=== PATIENT | female | born 1950 | race Caucasian/White ===

== ENCOUNTER → 2020-11-19 | Outpatient (CLI) | payer MEDICARE ==
[2020-11-19 09:06] VITALS: BP 161/92; PULSE 107; RESP 18; TEMP 98.7
--- NOTE | 2020-11-19 09:37 | P.PAINCN ---
History of Present Illness - Reason for Consult Consult date: 11/19/20 - History of Present Illness This is a 70 years old female with a four-month history of severe neck pain with rotation to the right upper extremity, associated with numbness and tingling sensation started 4 months ago, after she was gardening at home, and she started having her symptoms, she denies any motor or sensory deficit she denies any fever or night sweats she's continued to function, but the pain and numbness in her right arm and hand ,interferes with her quality of life, he was evaluated by orthopedic spine surgeon Dr. 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 History of Any Multi-Drug Resistant Organisms: None Reported Past Surgical History: Hysterectomy, Joint Replacement Additional Past Surgical History / Comment(s): gullbadder removal, total knee replacement right, cervical fusion in the 80s. Past Anesthesia/Blood Transfusion Reactions: No Reported Reaction Smoking Status: Former smoker Medications and Allergies Home Medications Medication Instructions Recorded Confirmed Type ALPRAZolam [Xanax] 0.25 mg PO DAILY 11/19/20 11/19/20 History Loratadine [Claritin] 10 mg PO DAILY 11/19/20 11/19/20 History Meloxicam [Mobic] 7.5 mg PO DAILY 11/19/20 11/19/20 History Physical Exam Vitals: Vital Signs Temp Pulse Resp BP Pulse Ox 11/19/20 08:57 98.7 F 107 H 18 161/92 99 Intake and Output 11/18/20 11/19/20 11/19/20 22:59 06:59 14:59 Other: Weight 68.039 kg Physical Examinations : -Constitutiona : Cooperative , not in acute distress . -HEENT : nech : supple , no Lymphadenopathy , normal thyroid size . : eyes : no ptosis , no icterus, no photophobia . - neurologic : Cranial nerve II to XII intact , no focal neurological deffecit . -psychatric : alert , oriented X 3 , appropriate affect , intact judgment and insight . -Lymphatic : no Lymphadenopathy . - musculoskeltal : Cervical Spine motor stregnth in the deltoid and biceps, normal right side , normal Left side motor stregnth biceps and the wrist extensors normal right side ,normal left side . motor stregnth in the triceps muscle . normal Right side , normal Left side deep tendon reflexes normal at the biceps , normal at Brachioradialis , normal at triceps Decreased sensation in the anterior medial aspect of the right upper extremity. cervical facet loading test: Positive right Spurling test= positive Right . Neck distraction test= positive Right . Ladarius sign= positive right . Lumber spine moter stegnth lower extremities ,thigh and legs 5/5 Right side , 5/5 Left side Results Comments: MRI of the cervical spine C6 7 cervical fusion and C5 6 degeneration and spondylosis at C2 3 uncovertebral joint hypertrophy and facet joint arthropathy C3 4 facet joint hypertrophy, cervical spinal stenosis Assessment and Plan Plan: Assessment and plan=1-cervical radiculopathy. 2-cervical spinal stenosis. 3-cervical degenerative disc disease. 4-cervical spondylosis with facet arthropathy. 5-previous cervical fusion at C6 7 level. Patient could benefit from cervical epidural steroid injection at C7-T1 right paramedian approach Time with Patient: Greater than 30 PQRS Measure Charge Sheet Measure #130: Documentation of Current Meds in Medical Chart: Patient's medications documented in chart Measure #226: Tobacco Use: Screen & Cessation Intervention: Pt not a tobacco user Measure #111: Pneumonia Vaccination: Pneumococcal vaccine administered or previously received Measure #47: Advance Care Plan: Advance care planning discussed & documented, pt chose/unable to give Measure #412: Opioid Treatment Agreement: No documentation of signed opioid treatment agreement Measure #408: Opioid Therapy Follow-up Evaluation: Patient had NO f/u eval minimum every 3 months during opioid therapy Measure #317: Preventitive Care & Scrn High Bld Press & F/U: Pre-hypertensive or hypertensive BP documented, pt will f/u with PCP Measure #128: Body Mass Index (BMI) Screening & Follow-up: BMI documented ABOVE normal parameters - f/u documented Measure #131: Pain Assessment & Follow-up: Pain positive & plan documented, Follow-up scheduled Measure #431: Unhealthy Alcohol Use Preventative Care & Scrn: Patient not identified as an unhealthy alcohol user PQRS Narrative: Blood Pressure 161/92 Pain Intensity [Right Neck] 5 Scale Used Numeric (1 - 10) Hx Alcohol Use (MH) Yes: OCC Home Medications: Ambulatory Orders ALPRAZolam [Xanax] 0.25 mg PO DAILY 11/19/20 Loratadine [Claritin] 10 mg PO DAILY 11/19/20 Meloxicam [Mobic] 7.5 mg PO DAILY 11/19/20
== END | disposition home or self-care (01) ==
LOC: PNWHC3 08:22
PROVIDERS: ATTEND Specialist
DX: M48.02 Spinal stenosis, cervical region (principal); M50.10 Cervical disc disorder with radiculopathy, unspecified cervical region; M47.22 Other spondylosis with radiculopathy, cervical region; Z98.1 Arthrodesis status; Z79.1 Long term (current) use of non-steroidal anti-inflammatories (NSAID); Z79.899 Other long term (current) drug therapy; Z87.891 Personal history of nicotine dependence
CPT/HCPCS: 99201

== ENCOUNTER 2020-12-12 12:34 | Day surgery (SDC) | payer MEDICARE ==
[2020-12-11 09:13] VITALS: BMI 25.7
[~2020-12-12 12:34] MED LIST: LACTATED RINGERS 1,000 ML IV SCH
[2020-12-12 13:24] VITALS: TEMP 99.2
[2020-12-12] MEDS ORDERED: LIDOCAINE 1% (10MG/ML) FOR IV START INTRADERMA ONE (13:42)
[2020-12-12] MEDS ORDERED: IOPAMIDOL M200 10 ML VIAL ONE (13:49)
[2020-12-12] MEDS ORDERED: DEXAMETHASONE SOD PHOSPHATE 10 MG/ML 1 ML VIAL ONE (13:49)
[2020-12-12] MEDS ORDERED: fentaNYL (PF) 50 MCG/ML 2 ML AMP ONE (13:51)
[2020-12-12] MEDS ORDERED: MIDAZOLAM 2 MG/2 ML VIAL ONE (13:51)
--- NOTE | 2020-12-12 14:02 | P.PCN ---
Date of Procedure: 12/12/20 Procedure(s) Performed: . PROCEDURE 1. Cervical epidural steroid injection under fluoroscopic guidance, C7-T1 (fluoroscopy images available in the radiology department ) 2. Cervical epidurogram. PREOPERATIVE DIAGNOSIS: 1- Cervical Degenerative Disc Diseases 2- Cervical radiculopathy., 3-cervical spondylosis with cervical Facet arthropathy without myelopathy POSTOPERATIVE DIAGNOSIS: : 1- Cervical Degenerative Disc Diseases , 2- Cervical radiculopathy. 3-,cervical spondylosis with cervical Facet arthropathy without myelopathy ANESTHESIA: Monitored anesthesia care as per anesthesia department. EBL 0 PROCEDURE INDICATION: The patient with neck pain and radiculitis unresponsive to conservative treatment consents for procedure. PROCEDURE DESCRIPTION / TECHNIQUE: The patient was seen and identified in the preoperative area. Risks, benefits, complications, including but not limited to infections ,bleeding , allergic reactions to the medications ,and not complete pain releife, and alternatives were discussed with the patient, the patient agreed to proceed with the procedure and signed the consent. Patient was taken to the OR and time out was completed. The patient was placed in the prone position on the procedure table. A pillow was placed under the patients chest to increase the cervical interlaminar space. The cervical area was prepped and draped in the usual sterile fashion. Vital signs were closely monitored during the procedure. Conscious sedation was used during the procedure to decrease patients anxiety. Using anterior-posterior fluoroscopy, the C7-T1 interlaminar space was identified and the skin over this site was marked and then infiltrated with 1% lidocaine subcutaneously. Subsequently, a 20-gauge 3-1/2-inch Tuohy epidural needle was inserted and advanced toward the epidural space by means of the ``hanging-drop technique and guided by AP and lateral fluoroscopy. The correct needle position in the epidural space was verified with the injection of 2 mL of the water soluble contrast dye Isovue-200 and observing an excellent epidurogram with the epidural spread of the dye, after negative aspiration for blood and CSF and in the absence of paresthesias. Again after negative aspiration, mixture containing 20 mg Dexamethasone and 2 ml of preservative- free normal saline injected and a washout of epidurogram was seen. Needle was withdrawn intact, skin was cleansed, and bandages were applied. Complications= none. Disposition= patient was placed in supine position and transferred to the recovery room area in stable condition and there was no evidence of upper or lower extremity motor or sensory deficit after the procedure patient was d ischarged from recovery room after discharge criteria met and home discharge instructions was given by the staff and patient will follow with the pain clinic in 2-4 weeks
[2020-12-12] MEDS ORDERED: IV FLUID CONTINUATION 800 ML IV ONE (14:08)
--- NOTE | 2020-12-12 14:12 | FL ---
EXAMINATION TYPE: FL guided pain mgmt statistic DATE OF EXAM: 12/12/2020 HISTORY: Fluoroscopy time Less than 60 seconds of fluoroscopy provided. IMPRESSION: 1. Fluoroscopy time.
[2020-12-12 14:15] VITALS: PULSE 84; RESP 20
[2020-12-12 14:37] VITALS: BP 126/81
== END 2020-12-12 14:39 | disposition home or self-care (01) ==
LOC: ORPAIN 12:34
PROVIDERS: ATTEND Specialist
DX: M50.10 Cervical disc disorder with radiculopathy, unspecified cervical region (principal); M47.22 Other spondylosis with radiculopathy, cervical region; I49.9 Cardiac arrhythmia, unspecified; I10 Essential (primary) hypertension; Z88.5 Allergy status to narcotic agent; Z79.1 Long term (current) use of non-steroidal anti-inflammatories (NSAID); Z79.899 Other long term (current) drug therapy
CPT/HCPCS: 62321; J2250; J1100; J3010; Q9966

== ENCOUNTER 2021-01-01 08:01 | Day surgery (SDC) | payer MEDICARE ==
[2020-12-31 12:08] VITALS: BMI 25.4
[2021-01-01 08:28] VITALS: TEMP 98
[2021-01-01] MEDS ORDERED: LIDOCAINE 1% (10MG/ML) FOR IV START INTRADERMA ONE (08:28)
[2021-01-01] MEDS ORDERED: IOPAMIDOL M200 10 ML VIAL ONE (08:45)
[2021-01-01] MEDS ORDERED: MIDAZOLAM 2 MG/2 ML VIAL ONE (08:45)
[2021-01-01] MEDS ORDERED: fentaNYL (PF) 50 MCG/ML 2 ML AMP ONE (08:45)
[2021-01-01] MEDS ORDERED: SODIUM CHLORIDE 0.9% (PF) 10 ML VIAL ONE (08:45)
[2021-01-01] MEDS ORDERED: DEXAMETHASONE SOD PHOSPHATE 10 MG/ML 1 ML VIAL ONE (08:45)
--- NOTE | 2021-01-01 09:04 | P.PCN ---
Date of Procedure: 01/01/21 Procedure(s) Performed: PROCEDURE 1. Cervical epidural steroid injection under fluoroscopic guidance, C7-T1 (R paramedian approach ) (fluoroscopy images available in the radiology department ) 2. Cervical epidurogram. PREOPERATIVE DIAGNOSIS: 1- Cervical Degenerative Disc Diseases 2- Cervical radiculopathy., 3-cervical spondylosis with cervical Facet arthropathy without myelopathy POSTOPERATIVE DIAGNOSIS: : 1- Cervical Degenerative Disc Diseases , 2- Cervical radiculopathy. 3-,cervical spondylosis with cervical Facet arthropathy without myelopathy ANESTHESIA: Moderate sedation with Versed 2 mg and fentanyl 50 g. EBL 0 PROCEDURE INDICATION: The patient with neck pain and radiculitis unresponsive to conservative treatment consents for procedure. PROCEDURE DESCRIPTION / TECHNIQUE: The patient was seen and identified in the preoperative area. Risks, benefits, complications, including but not limited to infections ,bleeding , allergic reactions to the medications ,and not complete pain releife, and alternatives were discussed with the patient, the patient agreed to proceed with the procedure and signed the consent. Patient was taken to the OR and time out was completed. The patient was placed in the prone position on the procedure table. A pillow was placed under the patients chest to increase the cervical interlaminar space. The cervical area was prepped and draped in the usual sterile fashion. Vital signs were closely monitored during the procedure. Conscious sedation was used during the procedure to decrease patients anxiety. Using anterior-posterior fluoroscopy, the C7-T1 ( right paramedian approach ) interlaminar space was identified and the skin over this site was marked and then infiltrated with 1% lidocaine subcutaneously. Subsequently, a 20-gauge 3-1/2-inch Tuohy epidural needle was inserted and advanced toward the epidural space by means of the ``hanging-drop technique and guided by AP and lateral fluoroscopy. The correct needle position in the epidural space was verified with the injection of 2 mL of the water soluble contrast dye [id number]-200 and observing an excellent epidurogram with the epidural spread of the dye, after negative aspiration for blood and CSF and in the absence of paresthesias. Again after negative aspiration, mixture containing 20 mg Dexamethasone and 2 ml of preservative-free normal saline injected and a washout of epidurogram was seen. Needle was withdrawn intact, skin was cleansed, and bandages were applied. Complications= none. Disposition= patient was placed in supine position and transferred to the recovery room area in stable condition and there was no evidence of upper or lower extremity motor or sensory deficit after the procedure patient was discharged from recovery room after discharge criteria met and home discharge instructions was given by the staff and patient will follow with the pain clinic in 2-4 weeks
[2021-01-01] MEDS ORDERED: IV FLUID CONTINUATION 1,000 ML IV ONE (09:09)
[2021-01-01 09:24] VITALS: BP 135/80; PULSE 64; RESP 16
--- NOTE | 2021-01-01 11:12 | FL ---
Fluoroscopy INDICATION: Pain FINDINGS: Fluoroscopy time: 14 seconds. Images obtained: 1. IMPRESSIONS: 1. Documentation of fluoroscopy.
== END 2021-01-01 09:50 | disposition home or self-care (01) ==
LOC: ORPAIN 08:01
PROVIDERS: ATTEND Specialist
DX: M50.10 Cervical disc disorder with radiculopathy, unspecified cervical region (principal); M47.22 Other spondylosis with radiculopathy, cervical region; Z88.5 Allergy status to narcotic agent
CPT/HCPCS: 62321; J2250; J1100; J3010; Q9966; 99152

== ENCOUNTER → 2021-01-20 | Outpatient (CLI) | payer MEDICARE ==
[2021-01-20 15:56] LABS: Basophils # (A) 0.1 k/uL (0-0.2); Basophils % (A) 1 %; Eosinophils # (A) 0.2 k/uL (0-0.7); Eosinophils % (A) 4 %; HCT 40.1 % (34.0-46.0); HGB 13.2 gm/dL (11.4-16.0); Lymphocytes # (A) 1.8 k/uL (1.0-4.8); Lymphocytes % (A) 35 %; MCH 32.6 pg (25.0-35.0); MCV 98.7 fL (80.0-100.0); Mean Platelet Volume 7.3; Monocytes # (A) 0.5 k/uL (0-1.0); Monocytes % (A) 10 %; Neutrophils # (A) 2.3 k/uL (1.3-7.7); Neutrophils % (A) 46 %; Platelet Count 180 k/uL (150-450); RBC 4.06 m/uL (3.80-5.40); RDW 13.3 % (11.5-15.5); WBC 5.1 k/uL (3.8-10.6)
[2021-01-20 16:05] LABS: Appearance,Urine Clear (Clear); Bilirubin,Urine Negative (Negative); Blood,Urine Negative (Negative); Calcium 9.5 mg/dL (8.4-10.2); Color,Urine Yellow; Glucose,Urine (UA) Negative (Negative); Ketones,Urine Negative (Negative); Leukocyte Esterase,Urine Moderate (Negative); Mucus,Urine Rare /hpf; Nitrite,Urine Negative (Negative); PH, Urine 5.5 (5.0-8.0); Potassium 4.1 mmol/L (3.5-5.1); Protein,Urine Negative (Negative); Specific Gravity,Urine 1.021 (1.001-1.035); Squamous Epithelial Cell,Urine 1 /hpf (0-4); Urobilinogen,Urine <2.0 mg/dL (<2.0); WBC,Urine 5 /hpf (0-5)
[2021-01-20 16:11] LABS: Partial Thromboplastin Time 23.1 sec (22.0-30.0); Prothrombin Time 10.7 sec (9.0-12.0)
--- NOTE | 2021-01-20 16:25 | XR ---
EXAMINATION TYPE: XR chest 2V DATE OF EXAM: 01/20/2021 COMPARISON: 01/17/2013 HISTORY: 70-year-old female presurgical testing TECHNIQUE: Frontal and lateral views FINDINGS: Heart normal size. Mild atherosclerotic calcifications. Some strandy atelectasis in the lower lungs. No layne consolidation or pleural effusion. IMPRESSION: No acute process seen.
== END | disposition home or self-care (01) ==
LOC: LABPAT 15:01
PROVIDERS: ATTEND Orthopaedic Surgery Orthopaedic Surgery of the Spine
DX: Z01.818 Encounter for other preprocedural examination (principal)
CPT/HCPCS: 71046; 80048; 81001; 85025; 85610; 85730; 86850; 86900; 86901; 93005

== ENCOUNTER 2021-01-28 06:22 | Day surgery (SDC) | payer MEDICARE ==
[2021-01-22 09:56] VITALS: BMI 25.7
[~2021-01-28 06:22] MED LIST changes: +DEXAMETHASONE SOD PHOSPHATE 4 MG/ML 1 ML VIAL IV PRN; -LACTATED RINGERS 1,000 ML IV SCH; +LIDOCAINE 1% (10MG/ML) FOR IV START INTRADERMA PRN; +ONDANSETRON 4 MG/2 ML VIAL IVP PRN; +ceFAZolin 1,000 MG in SODIUM CHLORIDE 0.9% IRRIGATIO 1,000 ML IRRIGATION PRN
[2021-01-28] MEDS: LACTATED RINGERS 1,000 ML IV SCH (06:57)
[2021-01-28] MEDS ORDERED: SUCCINYLCHOLINE CHLORIDE 100 MG/5 ML SYR IV ONE (07:27)
[2021-01-28] MEDS ORDERED: PROPOFOL 10 MG/ML 20 ML VIAL IV ONE (07:27)
[2021-01-28] MEDS ORDERED: fentaNYL (PF) 50 MCG/ML 2 ML AMP ONE (07:27)
[2021-01-28] MEDS ORDERED: DEXAMETHASONE SOD PHOSPHATE 10 MG/ML 1 ML VIAL ONE (07:27)
[2021-01-28] MEDS ORDERED: MIDAZOLAM 2 MG/2 ML VIAL ONE (07:27)
[2021-01-28] MEDS ORDERED: BUPIVACAINE (PF) 0.5% 30 ML VIAL SQ ONE ×2 (07:55→08:01)
[2021-01-28] MEDS ORDERED: LIDOCAINE 2%-EPI 1:100,000 20 ML VIAL SQ ONE ×2 (07:56→08:01)
[2021-01-28] MEDS ORDERED: THROMBIN (BOVINE) 5,000 UNIT VIAL TOPICAL ONE (07:56)
[2021-01-28] MEDS ORDERED: GELATIN SPONGE,ABSORB (SMALL) 1 EACH SPONGE TOPICAL ONE (07:57)
[2021-01-28] MEDS ORDERED: ACETAMINOPHEN TAB 325 MG TAB PO PRN (09:28)
[2021-01-28] MEDS ORDERED: ONDANSETRON 4 MG/2 ML VIAL IVP PRN (09:28)
[2021-01-28] MEDS ORDERED: traMADol 50 MG TAB PO PRN (09:30)
--- NOTE | 2021-01-28 09:42 | P.OP ---
Date of Procedure: 01/28/21 Preoperative Diagnosis: Severe cervical stenosis C5 6, cervical myelopathy, degenerative disc disease, upper extremity radiculopathy, upper extremity weakness, history of prior fusion C6 7 Postoperative Diagnosis: Same Anesthesia: GETA Pathology: none sent Condition: stable Disposition: PACU Description of Procedure: BRIEF OPERATIVE NOTE Preoperative Diagnosis:Severe cervical stenosis C5 6, cervical myelopathy, degenerative disc disease, upper extremity radiculopathy, upper extremity weakness, history of prior fusion C6 7 Postoperative Diagnosis:Severe cervical stenosis C5 6, cervical myelopathy, degenerative disc disease, upper extremity radiculopathy, upper extremity weakness, history of prior fusion C6 7 Procedure: Anterior cervical decompression with discectomy and fusion C5 6 Placement of interbody graft C5 6 Application of anterior cervical plate C5 6 Surgeon: Dr. Jonas Saddle Stitching Machine Operator: Jairo Herbert is present throughout the entire the case persistence during positioning, dissection, exposure, visualization, and all crucial elements of the case as well as closure. Anesthesia: General anesthesia Estimated blood loss: Approximately 75 mL Complications: None apparent Components implanted: K2M [place] anterior cervical plate system with 4 screws and Vikos interbody allograft bone graft Disposition: To recovery room in good stable condition. OPERATIVE INDICATIONS The patient has had long-standing issues in their neck and upper extremities. More than 20 years ago patient had undergone anterior cervical discectomy and fusion at C6 7 for stenosis. She had actually done well with that however has couple years is been developing worsening pain at her neck and upper extremities. His been worsening over the past few months and she had workup and evaluation found to have severe cervical stenosis and adjacent level at C5 6 with cord distortion and evidence of early myelopathy. Patient was having troubles in her upper extremities with some weakness and radiculopathy. The patient has been through conservative treatment. We discussed various treatment options including surgery, and the patient wishes to proceed with surgery We discussed the risk, patient's alternatives and benefits of surgery including but not limited to, risk of bleeding risk of infection, risk of need for further zepeda rgery, risk of decreased, loss of motion, muscle function, malunion nonunion, hardware failure, nerve damage, paralysis, heart attack, and . OPERATIVE SUMMARY After discussing all the risks, patient alternatives and benefits at length, the patient elected to proceed with surgical intervention, signed informed consent, and presented for their procedure. The patient was seen and examined in the preoperative holding area and the surgical site was marked. The patient was given antibiotics and brought to the operating room. The patient was positioned on the operating room table in a supine position being careful to pad any bony prominences and pressure points. The patient was sedated and intubated by anesthesia in standard fashion. Once the airway and C- spine were stabilized the patient's arms were padded and tucked at her side, with her shoulders gently taped. The head was placed in a donut pad with the neck in good neutral alignment and position. We were careful to maintain the patient's cervical spine and good neutral alignment and position throughout. The patient was prepped and draped in a normal standard fashion. An appropriate timeout and keystone protocol performed. We were able to proceed with the surgery. The local wound area was infiltrated with local anesthetic. An incision was made transversely approximately 2-1/2 cm over the appropriate levels on the left side at C5 6. Dissection was taken down subcutaneously to the level of the platysma which was split in line with its fibers. Dissection was taken with a carotid approach, with the trachea and esophagus medial and the carotid sheath laterally. We dissected down to the anterior surface of the vertebral bodies. Intraoperative x-ray was taken which showed a marker at the appropriate level at C5 6. With the appropriate level positively confirmed, we were able to proceed with discectomy at the appropriate levels. All of the operative levels were exposed appropriately. The patient had all their twitches back, and there was no evidence of recurrent laryngeal issue. The wound was copiously irrigated and suctioned dry as had been done periodically throughout the case. At the appropriate level/levels of C5 6, I had removed large anterior cervical osteophytes and then I established an annulotomy with an 11 blade scalpel. A discectomy was performed with a combination of pituitary rongeurs, curettes, a high-speed bur, and Kerrison rongeurs. The posterior longitudinal ligament was taken down as were any posterior osteophytes. Large posterior osteophytes were taken down as well as the thickened posterior longitudinal ligament. This gave good central and bilateral foraminal decompression. There is no evidence of any dural tear or leak. The endplates were prepared with a high-speed bur. With the endplates in good parallel position, I was able to size for the appropriate size interbody graft. The wound was irrigated and suctioned dry the graft was prepared and malleted into position. It had good alignment and position with the anterior surface flush with the anterior surface of the vertebral bodies. With the grafts intact, I was able to measure and contour and appropriate sized plate. The plate was positioned at the midline over the appropriate levels of C5 6. Screw holes were established with a hand drill and drill guide. Screws were placed in good alignment and position with excellent bony purchase. They were seated under the locking device. The construct was checked and found to be stable. Intraoperative x-ray was taken which showed good alignment and position of the implants at the appropriate levels. There was no evidence of any dural tear or leak. Good hemostasis was maintained. The wound was copiously irrigated and suctioned dry as had been done periodically throughout the case. The platysma was closed with absorbable suture. The subcutaneous tissue was closed. The subcuticular tissue was closed with absorbable suture. The wound was cleaned and dried and dressed appropriately. A soft cervical collar was placed appropriately. The patient was woken up by anesthesia, extubated, transferred back gently to their hospital bed and brought to the recovery room in good stable condition. The patient will be admitted to the hospital for appropriate postoperative care, medical management and monitoring. We will continue to follow them closely about the postoperative course.
[2021-01-28] MEDS ORDERED: fentaNYL (PF) 50 MCG/ML 2 ML AMP IVP ONE ×2 (09:50→10:00)
--- NOTE | 2021-01-28 10:32 | XR ---
Cervical spine HISTORY: Needle placement Single lateral view of the cervical spine submitted Marked degenerative disc change, postop changes noted. There is a needle present at the C3-4 disc spa ce. Endotracheal tube noted incidentally, there are overlying artifacts, leads. impression: Orthopedic localization
--- NOTE | 2021-01-28 10:36 | XR ---
Cervical spine HISTORY: Needle placement Single lateral view of the cervical spine correlated to previous exam on same dated earlier time Needle has been replaced at the C5-6 disc space. No other significant interval change. IMPRESSION: Orthopedic localization.
[2021-01-28] MEDS ORDERED: ONDANSETRON 4 MG/2 ML VIAL IVP ONE (10:42)
[2021-01-28] MEDS: HYDROmorphone 0.5 MG/0.5 ML SYRINGE IVP PRN ×4 (10:47→21:21)
[2021-01-28] MEDS ORDERED: ALPRAZolam 0.5 MG TAB ONE (10:58)
--- NOTE | 2021-01-28 11:03 | XR ---
EXAMINATION TYPE: XR cervical spine 1V DATE OF EXAM: 01/28/2021 COMPARISON: 01/28/2021 HISTORY: 70-year-old female heart replacement TECHNIQUE: Single intraoperative crosstable lateral view FINDINGS: The patient is intubated. Interval placement of C5-C6 ACDF. Stable degenerative grade 1 anterolisthes is C3-C4. IMPRESSION: Intraoperative view with placement of C5-C6 ACDF.
[2021-01-28] MEDS ORDERED: ALPRAZolam 0.5 MG TAB PO ONE (11:05)
[2021-01-28] MEDS: HYDROcodone/APAP 5-325MG 1 EACH TAB PO PRN ×2 (15:36→19:25)
[2021-01-28] MEDS: SODIUM CHLORIDE 0.9% 1,000 ML IV SCH (16:11)
[2021-01-28] MEDS: ALPRAZolam 0.5 MG TAB PO SCH (20:16)
[2021-01-28] MEDS: atenoloL 25 MG TAB PO SCH (20:16)
[2021-01-29] MEDS: SODIUM CHLORIDE 0.9% 1,000 ML IV SCH
[2021-01-29] MEDS: BENZOCAINE/MENTHOL LOZENG 1 EACH LOZENGE MUCOUS MEM PRN ×2 (00:18→09:11)
[2021-01-29] MEDS: LACTATED RINGERS 1,000 ML IV SCH (02:49)
[2021-01-29 05:22] VITALS: BP 122/77; PULSE 70; RESP 16; TEMP 98
[2021-01-29] MEDS: HYDROmorphone 0.5 MG/0.5 ML SYRINGE IVP PRN (07:23)
--- NOTE | 2021-01-29 08:33 | P.DS ---
Providers Date of admission: 01/28/21 Attending physician: Gracie Jonas Primary care physician: Johnny Castro Berger Hospital Course: The patient presented on the day of admission as per their operative note. She is postoperative day #1 from her anterior cervical decompression with discectomy and fusion at C5 6 for her adjacent level severe stenosis with upper extremity radiculopathy. She feels that her arms are doing well. She is some soreness around the base of her neck as expected. She is tolerating her diet and has been mobile and ambulatory. Physical Exam The incision site is clean dry and intact. There is no erythema no drainage. There is no purulence no evidence of infection. Her neck is soft and supple. There is some mild swelling around the area but no firmness. Abdomen soft and nontender. Chest has good excursion with deep inspiration and expiration. The patient has active and passive range of motion intact at the upper and lower extremities. There is no acute change in neurologic status. She has sustained terminal makeup operator biceps and triceps intact. Hospital Course Postoperative day #1 status post anterior cervical decompression with discectomy and fusion C5 6 for her severe spinal stenosis with upper extremity radiculopathy and weakness. She had a prior cervical fusion at C6 7 20 years ago. The patient has been making good progress postoperatively. She feels her arms are doing well. Her neck and shoulders have some sort stiffness from her surgery as expected. She is tolerating his appropriately. They have completed the prophylactic antibiotics without any signs or symptoms of infection. The patient has been able to advance their diet, and is tolerating diet adequately. The pain was initially controlled with IV medications and is now controlled appropriately with oral medications. The patient has been able to increase their mobilization. The patient has progressed appropriately. I think they are in good stable condition for discharge today. They will be sent home with appropriate prescriptions. I answered their questions to the best of my ability in a language that they can understand and they are agreeable with the plan. They will follow up as directed in approximately 2 weeks or sooner if she is having problems. Patient Condition at Discharge: Good Plan - Discharge Summary Discharge Rx Participant: Yes New Discharge Prescriptions: New HYDROcodone/APAP 5-325MG [Berkey 5] 1 each PO Q6HR PRN #12 tab PRN Reason: Pain traMADol HCL [Ultram] 50 mg PO Q6HR PRN 3 Days #28 tab PRN Reason: Pain No Action Meloxicam [Mobic] 7.5 mg PO BID Loratadine [Claritin] 10 mg PO DAILY ALPRAZolam [Xanax] 0.5 mg PO BID atenoloL [Atenolol] 25 mg PO BID Aspirin [Adult Low Dose Aspirin EC] 81 mg PO DAILY Multivitamin [Multivitamins Adult Gummies] 1 each PO DAILY Cholecalciferol [Vitamin D3 (25 Mcg = 1000 Iu)] 50 mcg PO DAILY Discharge Medication List ALPRAZolam [Xanax] 0.5 mg PO BID 11/19/20 [History] Loratadine [Claritin] 10 mg PO DAILY 11/19/20 [History] Meloxicam [Mobic] 7.5 mg PO BID 11/19/20 [History] Aspirin [Adult Low Dose Aspirin EC] 81 mg PO DAILY 11/24/20 [History] atenoloL [Atenolol] 25 mg PO BID 11/24/20 [History] Multivitamin [Multivitamins Adult Gummies] 1 each PO DAILY 12/11/20 [History] Cholecalciferol [Vitamin D3 (25 Mcg = 1000 Iu)] 50 mcg PO DAILY 12/31/20 [History] HYDROcodone/APAP 5-325MG [Berkey 5] 1 each PO Q6HR PRN #12 tab 01/29/21 [Rx] traMADol HCL [Ultram] 50 mg PO Q6HR PRN 3 Days #28 tab 01/29/21 [Rx] Follow up Appointment(s)/Referral(s): Gracie Jonas DO [Doctor of Osteopathic Medicine] - 2 Weeks Activity/Diet/Wound Care/Special Instructions: Do not take Ultram (Tramadol) and Berkey (hydrcodone) together. may alternate every 6-8 hours, or take one or the other. keep site clean, dry and intact. keep dressing intact. may shower with waterproof dressing intact. do not soak in a tub may remove dressing on Post op day 4, and then may shower with area uncovered avoid heavy or rigorous activity no overhead work may ambulate as tolerated Discharge Disposition: HOME SELF-CARE
[2021-01-29] MEDS ORDERED: MULTIVITAMINS, THERA 1 EACH TAB PO SCH (09:00)
[2021-01-29] MEDS ORDERED: CHOLECALCIFEROL 25 MCG (1000 IU) TABLET PO SCH (09:00)
[2021-01-29] MEDS ORDERED: LORATADINE 10 MG TAB PO SCH (09:00)
[2021-01-29] MEDS ORDERED: ASPIRIN 81 MG PO SCH (09:00)
[2021-01-29] MEDS ORDERED: SENNOSIDES-DOCUSATE SODIUM 1 EACH TAB PO SCH (09:00)
[2021-01-29] MEDS: ALPRAZolam 0.5 MG TAB PO SCH (09:04)
[2021-01-29] MEDS: atenoloL 25 MG TAB PO SCH (09:04)
[2021-01-29] MEDS: HYDROcodone/APAP 5-325MG 1 EACH TAB PO PRN (10:50)
== END 2021-01-29 11:18 | disposition home or self-care (01) ==
LOC: OR 06:22 → 5NMEDONC 09:33 → OR 01-29 11:18
PROVIDERS: ATTEND Orthopaedic Surgery Orthopaedic Surgery of the Spine
DX: M48.02 Spinal stenosis, cervical region (principal); M50.022 Cervical disc disorder at C5-C6 level with myelopathy; M50.122 Cervical disc disorder at C5-C6 level with radiculopathy; M43.12 Spondylolisthesis, cervical region; Z98.1 Arthrodesis status; M19.90 Unspecified osteoarthritis, unspecified site; I11.9 Hypertensive heart disease without heart failure; N28.9 Disorder of kidney and ureter, unspecified; Z85.828 Personal history of other malignant neoplasm of skin; Z86.73 Personal history of transient ischemic attack (TIA), and cerebral infarction without residual deficits; Z97.3 Presence of spectacles and contact lenses; H91.90 Unspecified hearing loss, unspecified ear; F41.9 Anxiety disorder, unspecified; Z90.710 Acquired absence of both cervix and uterus; Z98.890 Other specified postprocedural states; Z96.651 Presence of right artificial knee joint; Z87.891 Personal history of nicotine dependence; Z79.1 Long term (current) use of non-steroidal anti-inflammatories (NSAID); Z79.82 Long term (current) use of aspirin; Z79.899 Other long term (current) drug therapy; Z88.5 Allergy status to narcotic agent
CPT/HCPCS: 22551; 20931; 72020; C1713; C1762; J2250; J1100; J0690 ×3; J2405; J3010; J0330; J2704; J1170 ×2; 86850; 86900; 86901

== ENCOUNTER 2024-09-27 00:35 | Emergency (ER) | payer MEDICARE ==
[2024-09-27 00:45] VITALS: TEMP 98.4
[2024-09-27 00:51] LABS: Glucose,Whole Blood 151 mg/dL (70-110)
--- NOTE | 2024-09-27 00:53 | ED ---
Altered Mental Status HPI - General Chief Complaint: Altered Mental Status Stated Complaint: syncope Time Seen by Provider: 09/27/24 00:38 Source: patient, EMS Mode of arrival: EMS - History of Present Illness Initial Comments: Patient is a 74-year-old female with a history of prior CVA/TIA presenting today for seizure. Per EMS report patient has no history of seizures. Just prior travel patient had 12-minute tonic-clonic activity witnessed by family just prior to arrival. Did fall and hit her head. En route to the hospital she had increasing level of consciousness but appeared post ictal. Blood sugar 109 prior to arrival. The patient herself denies any pain currently. Denies any changes in vision. Denies headache or neck pain. History is limited due to patient's altered mental status, currently oriented to self and place but not time - Related Data Home Medications Medication Instructions Recorded Confirmed ALPRAZolam [Xanax] 0.5 mg PO BID 11/19/20 01/28/21 Loratadine [Claritin] 10 mg PO DAILY 11/19/20 01/28/21 Meloxicam [Mobic] 7.5 mg PO BID 11/19/20 01/28/21 Aspirin [Adult Low Dose Aspirin EC] 81 mg PO DAILY 11/24/20 01/28/21 atenoloL [Atenolol] 25 mg PO BID 11/24/20 01/28/21 Multivitamin [Multivitamins Adult 1 each PO DAILY 12/11/20 01/28/21 Gummies] Cholecalciferol [Vitamin D3 (25 50 mcg PO DAILY 12/31/20 01/28/21 Mcg = 1000 Iu)] Previous Rx's Medication Instructions Recorded HYDROcodone/APAP 5-325MG [[place] 5] 1 each PO Q6HR PRN #12 tab 01/29/21 traMADol HCL [Ultram] 50 mg PO Q6HR PRN 3 Days #28 tab 01/29/21 Allergies Allergy/AdvReac Type Severity Reaction Status Date / Time pentazocine [From [place]] AdvReac Hallucinati Verified 01/28/21 06:55 ons Review of Systems ROS Statement: Those systems with pertinent positive or pertinent negative responses have been documented in the HPI. ROS Other: All systems not noted in ROS Statement are negative. Limitations: ROS unobtainable due to patients medical condition Past Medical History Past Medical History: Cancer, CVA/TIA, Hearing Disorder / Deafness, Hypertension, Osteoarthritis (OA) Additional Past Medical History / Comment(s): basal cell carcinoma, generalized arthritis, deafness. History of Any Multi-Drug Resistant Organisms: None Reported Past Surgical History: Cholecystectomy, Hysterectomy, Joint Replacement, Orthopedic Surgery Additional Past Surgical History / Comment(s): total knee replacement right, ce rvical fusion in the 80s. pain injections Past Anesthesia/Blood Transfusion Reactions: No Reported Reaction Past Psychological History: No Psychological Hx Reported Smoking Status: Former smoker - Past Family History Mother Family Medical History: No Reported History General Exam - General Exam Comments Initial Comments: PE: CONSTITUTIONAL: [no apparent distress, ill-appearing, nontoxic] SKIN: [warm, dry, no jaundice, hives or petechiae] EYES:[ pupils are equally round, extraocular movements intact without nystagmus, clear conjunctiva, non-icteric sclera] HENT: [normocephalic, atraumatic, moist mucus membranes, small bite nellie to the lower lip, dried blood around mouth otherwise note oropharynx is clear oropharynx clear without exudates] NECK: , [C-collar in place, no midline spinal tenderness to palpation] PULMONARY: [clear to auscultation without wheezes, rhonchi, or rales, normal excursion, no accessory muscle use and no stridor] CARDIOVASCULAR:[ regular rate, rhythm, normal S1 and S2. No appreciated murmurs, rubs or gallops. Strong radial pulses with intact distal perfusion. No lower extremity edema] GASTROINTESTINAL: [soft, active bowel sounds throughout, non-tender, non-disten ded, no palpable masses, no rebound or guarding. No hepatosplenomegaly] GENITOURINARY: MUSCULOSKELETAL: [Extremities have no gross deformity, no edema, redness, or swelling. No calf swelling ] NEUROLOGIC: [_a/o x 2-3 , GCS 14, mild aphasia and mild dysarthria Moves all extremities x 4 without motor or sensory deficit, clonus in LE bilaterally, infrequent intermittent twitchng movements of extremities, otherwise no seizure activity, no nystagmus] PSYCHIATRIC:[ _normal mood and affect, thought process is somewhat confused. Calm and cooperatvie] Course Vital Signs 09/27/24 09/27/24 09/27/24 00:36 00:49 01:19 Temperature 98.4 F Pulse Rate 78 74 76 Respiratory 16 18 18 Rate Blood Pressure 165/96 165/96 152/91 O2 Sat by Pulse 98 99 99 Oximetry Fraction of Inspired Oxygen (FIO2) 09/27/24 09/27/24 09/27/24 01:48 01:54 02:19 Temperature Pulse Rate 88 90 Respiratory 8 L 14 Rate Blood Pressure 188/102 132/76 O2 Sat by Pulse 100 97 Oximetry Fraction of 100 Inspired Oxygen (FIO2) 09/27/24 09/27/24 03:03 03:21 Temperature Pulse Rate 80 82 Respiratory 16 16 Rate Blood Pressure 137/85 137/85 O2 Sat by Pulse 96 96 Oximetry Fraction of Inspired Oxygen (FIO2) Medical Decision Making - Medical Decision Making Was pt. sent in by a medical professional or institution (, PA, FITNESS PLAN COORDINATOR, urgent care, hospital, or skilled nursing...) When possible be specific @ -No Did you speak to anyone other than the patient for history (EMS, parent, family, police, friend...)? What history was obtained from this source @ -I did speak with EMS personnel and patient's family who later arrived at bedside Did you review nursing and triage notes (agree or disagree)? Why? @ -I reviewed and agree with nursing and triage notes Were old charts reviewed (outside hosp., previous admission, EMS record, old EKG, old radiological studies, urgent care reports/EKG's, skilled nursing records)? Report findings @Medical records reviewed- Most recent record available for review is from 01/28/2021 when patient had anterior cervical decompression and discectomy. Differential Diagnosis (chest pain, altered mental status, abdominal pain women, abdominal pain men, vaginal bleeding, weakness, fever, dyspnea, syncope, headache, dizziness, GI bleed, back pain, seizure, CVA, palpatations, mental health, musculoskeletal)? @ -Differential Seizure: Recurrent seizure disorder, febrile seizure, alcohol withdrawal, stimulants, infection, intercranial hemorrhage, intracranial tumor, stroke, thyrotoxicosis, hypocalcemia, hyponatremia, hypernatremia, hypomagnesemia, psychogenic, this is not meant to be an all-inclusive list. EKG interpreted by me (3pts min.). @Sinus rhythm, rate 79 bpm, MO interval 200 ms, QRS duration 90 ms, QT/QTc 382/416 ms, normal axis, no ST elevations or depressions X-rays interpreted by me (1pt min.). @No cardiomegaly or consolidations CT interpreted by me (1pt min.). @No evidence of hemorrhage, dissection or large vessel occlusion U/S interpreted by me (1pt. min.). @ -None done What testing was considered but not performed or refused? (CT, X-rays, U/S, labs)? Why? @ -None What meds were considered but not given or refused? Why? @Considered Ativan however patient seizure aborted spontaneously Did you discuss the management of the patient with other professionals (ratna thornton i.e. , PA, FITNESS PLAN COORDINATOR, lab, RT, psych nurse, drug abuse social worker, piggyback clerk, teacher, foreign service officer, caser up)? Give summary @ -Case discussed with accepting physician at [facility] as well as Dr. Michael khan, neurology, see details on conversation below Was smoking cessation discussed for >3mins.? @ -No Was critical care preformed (if so, how long)? @Yes, 45 minutes Were there social determinants of health that impacted care today? How? (Homelessness, low income, unemployed, alcoholism, drug addiction, transportation, low edu. Level, literacy, decrease access to med. care, skilled nursing, rehab)? @ -No Was there de-escalation of care discussed even if they declined (Discuss DNR or withdrawal of care, Hospice)? @ -No What co-morbidities impacted this encounter? (DM, HTN, Smoking, COPD, CAD, Cancer, CVA, ARF, Chemo, Hep., AIDS, mental health diagnosis, sleep apnea, morbid obesity)? @Hypertension, TIA Was patient admitted / discharged? Hospital course, mention meds given and route, prescriptions, significant lab abnormalities, going to OR and other pertinent info. @ -Transfer to [facility] 74-year-old female presenting today for seizure, no history of the prior, history hypertension TIA. On arrival noted to have mild aphasia and mild dysarthria. Otherwise no focal neurologic deficits, c-collar in place. Additionally clonus noted. Patient does have a large bag medications that include telmisartan, zolpidem, loratadine, Xanax, metoprolol, tramadol, history is limited as patient does not appear to remember what happened prior to arrival here in the ER today. Patient denies taking any extra dosages of her medications. Differential diagnoses however top considerations include demetrio ctrolyte abnormality, infection, CVA, medication overdose/side effect, arrhythmia. I have a lower suspicion for infectious etiology as patient is afebrile, has not had any recent illnesses, per family. Due to seizure and aphasia stroke alert was called, though these deficits could also be secondary to her seizure. NIH of 2, and symptoms improving so unlikely tenecteplase candidate. I did discuss with Dr. Patino, specialist, if large vessel occlusion does recommend considering tenecteplase, otherwise withhold. No history of alcohol abuse, no history alcohol drawl seizures. Labs and imaging reviewed. Grossly within normal limits. Abnormal values not concerning for acute pathology related to presenting complaint. CT brain, CTA showed no hemorrhage or large vessel occlusion. Urinalysis significant for 1+ ketones. UDS positive for benzodiazepines. Sodium 135. Creatinine 1.21 which is slightly increased from prior, otherwise labs grossly within normal limits. Bedside as patient began to have seizure-like activity again, this consisted of eye blinking, upper extremity shaking, tonic-clonic activity, nonrebreather was applied, seizure activity spontaneously stopped after about 10 seconds without intervention. Ordered 3 g Keppra. On reassessment patient is waking up, is mildly confused though able to answer questions. Discussed with Dr. Goddard, neurology, we do not have a neurology tach until Tuesday and cannot perform EEG so patient should be transferred to where there is EEG. On reassessment patient is returned to baseline, now AO x 3. No further jerking movements. Cleared patient C-spine. There is no midline cervical neck tenderness or step-offs. The patient denies any numbess, tingling, or weakness of the extremities when moving neck through full ROM. The patient is able to range their neck completely without midline cervical pain, numbness, tingling or weakness. Discussed with patient and family at bedside plan for transfer to [facility], patient is agreeable with plan. Discussed case with Dr. Orellana, [facility] ED, who kindly accepted patient for transfer. Patient transferred in stable condition to [facility] Undiagnosed new problem with uncertain prognosis? @ -Yes, seizure disorder of unknown etiology Drug Therapy requiring intensive monitoring for toxicity (Heparin, Nitro, Insulin, Cardizem)? @ -No Were any procedures done? @ -No Diagnosis/symptom? @ -Seizure new onset Acute, or Chronic, or Acute on Chronic? @ -Acute Uncomplicated (without systemic symptoms) or Complicated (systemic symptoms)? @Complicated Side effects of treatment? @ -No Exacerbation, Progression, or Severe Exacerbation? @ -No Poses a threat to life or bodily function? How? (Chest pain, USA, VT, pneumonia, PE, COPD, DKA, ARF, appy, cholecystitis, CVA, Diverticulitis, Homicidal, Suicidal, threat to staff... and all critical care pts) @Yes - Lab Data Result diagrams: 09/27/24 00:41 09/27/24 00:41 Lab Results 09/27/24 09/27/24 09/27/24 Range/Units 00:41 00:41 00:41 WBC 6.5 (3.8-10.6) k/uL RBC 4.09 (3.80-5.40) m/uL Hgb 13.6 (11.4-16.0) gm/dL Hct 41.9 (34.0-46.0) % MCV 102.3 H (80.0-100.0) fL MCH 33.2 (25.0-35.0) pg MCHC 32.5 (31.0-37.0) g/dL RDW 13.1 (11.5-15.5) % Plt Count 168 (150-450) k/uL MPV 7.4 Neutrophils % 58 % Lymphocytes % 27 % Monocytes % 8 % Eosinophils % 4 % Basophils % 1 % Neutrophils # 3.7 (1.3-7.7) k/uL Lymphocytes # 1.8 (1.0-4.8) k/uL Monocytes # 0.5 (0-1.0) k/uL Eosinophils # 0.2 (0-0.7) k/uL Basophils # 0.0 (0-0.2) k/uL Macrocytosis Slight PT 11.1 (10.0-12.5) sec INR 1.0 (<1.2) APTT 21.3 L (22.0-30.0) sec Sodium 135 L (137-145) mmol/L Potassium 3.9 (3.5-5.1) mmol/L Chloride 102 (98-107) mmol/L Carbon Dioxide 23 (22-30) mmol/L Anion Gap 10 mmol/L BUN 30 H (7-17) mg/dL Creatinine 1.21 H (0.52-1.04) mg/dL Est GFR (CKD-EPI)AfAm 52 (>60 ml/min/1.73 sqM) Est GFR (CKD-EPI)NonAf 45 (>60 ml/min/1.73 sqM) Glucose 153 H (74-99) mg/dL POC Glucose (mg/dL) (70-110) mg/dL POC Glu Order Entry ID Calcium 9.8 (8.4-10.2) mg/dL Magnesium (1.6-2.3) mg/dL Total Bilirubin 1.2 (0.2-1.3) mg/dL AST 32 (14-36) U/L ALT 17 (4-34) U/L Alkaline Phosphatase 78 (38-126) U/L Creatine Kinase 92 (30-135) U/L Troponin I (0.000-0.034) ng/mL Total Protein 7.3 (6.3-8.2) g/dL Albumin 4.8 (3.5-5.0) g/dL TSH (0.465-4.680) mIU/L Urine Color Urine Appearance (Clear) Urine pH (5.0-8.0) Ur Specific [place] (1.001-1.035) Urine Protein (Negative) Urine Glucose (UA) (Negative) Urine Ketones (Negative) Urine Blood (Negative) Urine Nitrite (Negative) Urine Bilirubin (Negative) Urine Urobilinogen (<2.0) mg/dL Ur Leukocyte Esterase (Negative) Salicylates mg/dL Urine Opiates Screen (NotDetected) Ur Oxycodone Screen (NotDetected) Urine Methadone Screen (NotDetected) Acetaminophen ug/mL Ur Barbiturates Screen (NotDetected) U Tricyclic Antidepress (NotDetected) Ur Phencyclidine Scrn (NotDetected) Ur Amphetamines Screen (NotDetected) U Methamphetamines Scrn (NotDetected) U Benzodiazepines Scrn (NotDetected) Urine Cocaine Screen (NotDetected) U Marijuana (THC) Screen (NotDetected) Serum Alcohol mg/dL 09/27/24 09/27/24 09/27/24 Range/Units 00:41 00:41 00:41 WBC (3.8-10.6) k/uL RBC (3.80-5.40) m/uL Hgb (11.4-16.0) gm/dL Hct (34.0-46.0) % MCV (80.0-100.0) fL MCH (25.0-35.0) pg MCHC (31.0-37.0) g/dL RDW (11.5-15.5) % Plt Count (150-450) k/uL MPV Neutrophils % % Lymphocytes % % Monocytes % % Eosinophils % % Basophils % % Neutrophils # (1.3-7.7) k/uL Lymphocytes # (1.0-4.8) k/uL Monocytes # (0-1.0) k/uL Eosinophils # (0-0.7) k/uL Basophils # (0-0.2) k/uL Macrocytosis PT (10.0-12.5) sec INR (<1.2) APTT (22.0-30.0) sec Sodium (137-145) mmol/L Potassium (3.5-5.1) mmol/L Chloride (98-107) mmol/L Carbon Dioxide (22-30) mmol/L Anion Gap mmol/L BUN (7-17) mg/dL Creatinine (0.52-1.04) mg/dL Est GFR (CKD-EPI)AfAm (>60 ml/min/1.73 sqM) Est GFR (CKD-EPI)NonAf (>60 ml/min/1.73 sqM) Glucose (74-99) mg/dL POC Glucose (mg/dL) (70-110) mg/dL POC Glu Order Entry ID Calcium (8.4-10.2) mg/dL Magnesium 1.8 (1.6-2.3) mg/dL Total Bilirubin (0.2-1.3) mg/dL AST (14-36) U/L ALT (4-34) U/L Alkaline Phosphatase (38-126) U/L Creatine Kinase 92 (30-135) U/L Troponin I <0.012 (0.000-0.034) ng/mL Total Protein (6.3-8.2) g/dL Albumin (3.5-5.0) g/dL TSH 2.580 (0.465-4.680) mIU/L Urine Color Urine Appearance (Clear) Urine pH (5.0-8.0) Ur Specific [place] (1.001-1.035) Urine Protein (Negative) Urine Glucose (UA) (Negative) Urine Ketones (Negative) Urine Blood (Negative) Urine Nitrite (Negative) Urine Bilirubin (Negative) Urine Urobilinogen (<2.0) mg/dL Ur Leukocyte Esterase (Negative) Salicylates <1.0 mg/dL Urine Opiates Screen (NotDetected) Ur Oxycodone Screen (NotDetected) Urine Methadone Screen (NotDetected) Acetaminophen <10.0 ug/mL Ur Barbiturates Screen (NotDetected) U Tricyclic Antidepress (NotDetected) Ur Phencyclidine Scrn (NotDetected) Ur Amphetamines Screen (NotDetected) U Methamphetamines Scrn (NotDetected) U Benzodiazepines Scrn (NotDetected) Urine Cocaine Screen (NotDetected) U Marijuana (THC) Screen (NotDetected) Serum Alcohol mg/dL 09/27/24 09/27/24 09/27/24 Range/Units 00:50 02:07 02:35 WBC (3.8-10.6) k/uL RBC (3.80-5.40) m/uL Hgb (11.4-16.0) gm/dL Hct (34.0-46.0) % MCV (80.0-100.0) fL MCH (25.0-35.0) pg MCHC (31.0-37.0) g/dL RDW (11.5-15.5) % Plt Count (150-450) k/uL MPV Neutrophils % % Lymphocytes % % Monocytes % % Eosinophils % % Basophils % % Neutrophils # (1.3-7.7) k/uL Lymphocytes # (1.0-4.8) k/uL Monocytes # (0-1.0) k/uL Eosinophils # (0-0.7) k/uL Basophils # (0-0.2) k/uL Macrocytosis PT (10.0-12.5) sec INR (<1.2) APTT (22.0-30.0) sec Sodium (137-145) mmol/L Potassium (3.5-5.1) mmol/L Chloride (98-107) mmol/L Carbon Dioxide (22-30) mmol/L Anion Gap mmol/L BUN (7-17) mg/dL Creatinine (0.52-1.04) mg/dL Est GFR (CKD-EPI)AfAm (>60 ml/min/1.73 sqM) Est GFR (CKD-EPI)NonAf (>60 ml/min/1.73 sqM) Glucose (74-99) mg/dL POC Glucose (mg/dL) 151 H 120 H (70-110) mg/dL POC Glu Order Entry ID Hui Raghavendra Hui Raghavendra Calcium (8.4-10.2) mg/dL Magnesium (1.6-2.3) mg/dL Total Bilirubin (0.2-1.3) mg/dL AST (14-36) U/L ALT (4-34) U/L Alkaline Phosphatase (38-126) U/L Creatine Kinase (30-135) U/L Troponin I (0.000-0.034) ng/mL Total Protein (6.3-8.2) g/dL Albumin (3.5-5.0) g/dL TSH (0.465-4.680) mIU/L Urine Color Colorless Urine Appearance Clear (Clear) Urine pH 6.0 (5.0-8.0) Ur Specific [place] 1.025 (1.001-1.035) Urine Protein Negative (Negative) Urine Glucose (UA) Negative (Negative) Urine Ketones 1+ H (Negative) Urine Blood Negative (Negative) Urine Nitrite Negative (Negative) Urine Bilirubin Negative (Negative) Urine Urobilinogen <2.0 (<2.0) mg/dL Ur Leukocyte Esterase Negative (Negative) Salicylates mg/dL Urine Opiates Screen (NotDetected) Ur Oxycodone Screen (NotDetected) Urine Methadone Screen (NotDetected) Acetaminophen ug/mL Ur Barbiturates Screen (NotDetected) U Tricyclic Antidepress (NotDetected) Ur Phencyclidine Scrn (NotDetected) Ur Amphetamines Screen (NotDetected) U Methamphetamines Scrn (NotDetected) U Benzodiazepines Scrn (NotDetected) Urine Cocaine Screen (NotDetected) U Marijuana (THC) Screen (NotDetected) Serum Alcohol mg/dL 09/27/24 09/27/24 Range/Units 02:38 03:00 WBC (3.8-10.6) k/uL RBC (3.80-5.40) m/uL Hgb (11.4-16.0) gm/dL Hct (34.0-46.0) % MCV (80.0-100.0) fL MCH (25.0-35.0) pg MCHC (31.0-37.0) g/dL RDW (11.5-15.5) % Plt Count (150-450) k/uL MPV Neutrophils % % Lymphocytes % % Monocytes % % Eosinophils % % Basophils % % Neutrophils # (1.3-7.7) k/uL Lymphocytes # (1.0-4.8) k/uL Monocytes # (0-1.0) k/uL Eosinophils # (0-0.7) k/uL Basophils # (0-0.2) k/uL Macrocytosis PT (10.0-12.5) sec INR (<1.2) APTT (22.0-30.0) sec Sodium (137-145) mmol/L Potassium (3.5-5.1) mmol/L Chloride (98-107) mmol/L Carbon Dioxide (22-30) mmol/L Anion Gap mmol/L BUN (7-17) mg/dL Creatinine (0.52-1.04) mg/dL Est GFR (CKD-EPI)AfAm (>60 ml/min/1.73 sqM) Est GFR (CKD-EPI)NonAf (>60 ml/min/1.73 sqM) Glucose (74-99) mg/dL POC Glucose (mg/dL) (70-110) mg/dL POC Glu Order Entry ID Calcium (8.4-10.2) mg/dL Magnesium (1.6-2.3) mg/dL Total Bilirubin (0.2-1.3) mg/dL AST (14-36) U/L ALT (4-34) U/L Alkaline Phosphatase (38-126) U/L Creatine Kinase (30-135) U/L Troponin I (0.000-0.034) ng/mL Total Protein (6.3-8.2) g/dL Albumin (3.5-5.0) g/dL TSH (0.465-4.680) mIU/L Urine Color Urine Appearance (Clear) Urine pH (5.0-8.0) Ur Specific [place] (1.001-1.035) Urine Protein (Negative) Urine Glucose (UA) (Negative) Urine Ketones (Negative) Urine Blood (Negative) Urine Nitrite (Negative) Urine Bilirubin (Negative) Urine Urobilinogen (<2.0) mg/dL Ur Leukocyte Esterase (Negative) Salicylates mg/dL Urine Opiates Screen Not Detected (NotDetected) Ur Oxycodone Screen Not Detected (NotDetected) Urine Methadone Screen Not Detected (NotDetected) Acetaminophen ug/mL Ur Barbiturates Screen Not Detected (NotDetected) U Tricyclic Antidepress Not Detected (NotDetected) Ur Phencyclidine Scrn Not Detected (NotDetected) Ur Amphetamines Screen Not Detected (NotDetected) U Methamphetamines Scrn Not Detected (NotDetected) U Benzodiazepines Scrn Detected H (NotDetected) Urine Cocaine Screen Not Detected (NotDetected) U Marijuana (THC) Screen Not Detected (NotDetected) Serum Alcohol <10 mg/dL Disposition Clinical Impression: New onset seizure Disposition: OTHER INSTITUTION NOT DEFINED Instructions (If sedation given, give patient instructions): Seizure/Epilepsy Discharge Instructions & Follow-Up Referrals: Johnny Michele DO [Primary Care Provider] - 1-2 days - Out of Hospital Transfer - Req. Specs Out of Hospital Transfer - Requested Specifics: Other Emergency Center ([facility])
[2024-09-27 01:20] LABS: Basophils % (A) 1 %; Eosinophils # (A) 0.2 k/uL (0-0.7); Eosinophils % (A) 4 %; HCT 41.9 % (34.0-46.0); HGB 13.6 gm/dL (11.4-16.0); Lymphocytes # (A) 1.8 k/uL (1.0-4.8); Lymphocytes % (A) 27 %; MCH 33.2 pg (25.0-35.0); MCHC 32.5 g/dL (31.0-37.0); MCV 102.3 fL (80.0-100.0); Macrocytosis Slight; Mean Platelet Volume 7.4; Monocytes # (A) 0.5 k/uL (0-1.0); Monocytes % (A) 8 %; Neutrophils # (A) 3.7 k/uL (1.3-7.7); Neutrophils % (A) 58 %; Platelet Count 168 k/uL (150-450); RBC 4.09 m/uL (3.80-5.40); RDW 13.1 % (11.5-15.5); WBC 6.5 k/uL (3.8-10.6)
[2024-09-27 01:26] LABS: ALT 17 U/L (4-34); AST 32 U/L (14-36); African American GFR (CKD) 52 (>60 ml/min/1.73 sqM); Albumin 4.8 g/dL (3.5-5.0); Alkaline Phosphatase 78 U/L (38-126); Anion Gap 10 mmol/L; Blood Urea Nitrogen 30 mg/dL (7-17); Calcium 9.8 mg/dL (8.4-10.2); Carbon Dioxide 23 mmol/L (22-30); Chloride 102 mmol/L (98-107); Creatine Kinase 92 U/L (30-135); Glucose 153 mg/dL (74-99); Non-African American GFR(CKD) 45 (>60 ml/min/1.73 sqM); Potassium 3.9 mmol/L (3.5-5.1); Sodium 135 mmol/L (137-145); Total Bilirubin 1.2 mg/dL (0.2-1.3); Total Protein 7.3 g/dL (6.3-8.2)
--- NOTE | 2024-09-27 01:27 | CT ---
EXAM: CT Cervical Spine Without Intravenous Contrast CLINICAL HISTORY: ITS.REASON CT Reason: fall TECHNIQUE: Axial computed tomography images of the cervical spine without intravenous contrast. CTDI is 12.4 mGy and DLP is 298.7 mGy-cm. This CT exam was performed using one or more of the following dose reduction techniques: automated exposure control, adjustment of the mA and/or kV according to patient size, and/or use of iterative reconstruction technique. COMPARISON: No relevant prior studies available. FINDINGS: Prior C5-6 ACDF. Vertebrae: No acute fracture. Discs/spinal canal/neural foramina: degenerative changes. Soft tissues: No prevertebral swelling. IMPRESSION: No acute fracture or subluxation.
--- NOTE | 2024-09-27 01:30 | CT ---
EXAM: CT Head Without Intravenous Contrast CLINICAL HISTORY: ITS.REASON CT Reason: Neuro deficit, acute, stroke suspected TECHNIQUE: Axial computed tomography images of the head/brain without intravenous contrast. CTDI is 11.2 mGy and DLP is 329.7 mGy-cm. This CT exam was performed using one or more of the following dose reduction techniques: automated exposure control, adjustment of the mA and/or kV according to patient size, and/or use of iterative reconstruction technique. COMPARISON: No relevant prior studies available. FINDINGS: Brain: Mild volume loss with prominent ventricles and sulci. Mild periventricular white matter hypoattenuation likely reflects chronic small vessel disease. Small amount of pneumocephalus, likely in the cavernous sinuses. Nonspecific. No hemorrhage. Ventricles: See above. Bones/joints: Unremarkable. No acute fracture. Soft tissues: Unremarkable. Sinuses: Unremarkable as visualized. No acute sinusitis. Mastoid air cells: Unremarkable as visualized. No mastoid effusion. Orbits: Bilateral intraocular lens implants. IMPRESSION: No acute findings in the head/brain.
[2024-09-27 01:36] LABS: Prothrombin Time 11.1 sec (10.0-12.5)
[2024-09-27 01:40] LABS: Partial Thromboplastin Time 21.3 sec (22.0-30.0)
--- NOTE | 2024-09-27 01:40 | CT ---
EXAM: CT Angiography Head and Neck With Intravenous Contrast CLINICAL HISTORY: ITS.REASON CT Reason: Neuro deficit, acute, stroke suspected TECHNIQUE: [place] [facility]/head and neck CT angiography protocol performed with intravenous contrast. CTDI is 45.2 mGy and DLP is 1004 mGy-cm. This CT exam was performed using one or more of the following dose reduction techniques: automated exposure control, adjustment of the mA and/or kV according to patient size, and/or use of iterative reconstruction technique. MIP reconstructed images were created and reviewed. COMPARISON: Head CT and C-spine today (09/27/2024). FINDINGS: HEAD: Right anterior cerebral artery: Unremarkable. No occlusion or significant stenosis. Anterior communicating artery is present. No aneurysm. Right middle cerebral artery: Unremarkable. No occlusion or significant stenosis. No aneurysm. Right posterior cerebral artery: origin of the right posterior cerebral artery, variant anatomy. No occlusion or significant stenosis. No aneurysm. Right intracranial internal carotid artery: Unremarkable. No significant stenosis. No dissection or occlusion. Right intracranial vertebral artery: Unremarkable. No significant stenosis. No dissection or occlusion. Left anterior cerebral artery: Unremarkable. No occlusion or significant stenosis. No aneurysm. Left middle cerebral artery: Unremarkable. No occlusion or significant stenosis. No aneurysm. Left posterior cerebral artery: Unremarkable. No occlusion or significant stenosis. No aneurysm. Left intracranial internal carotid artery: Unremarkable. No significant stenosis. No dissection or occlusion. Left intracranial vertebral artery: Unremarkable. No significant stenosis. No dissection or occlusion. Basilar artery: Unremarkable. No occlusion or significant stenosis. No aneurysm. Other vasculature: No vascular malformation. NECK: Right common carotid artery: Unremarkable. No significant stenosis. No dissection or occlusion. Right extracranial internal carotid artery: Mild atherosclerotic calcifications of the carotid bulb. No significant stenosis. No dissection or occlusion. Right external carotid artery: Unremarkable. No occlusion. Right extracranial vertebral artery: Unremarkable. No significant stenosis. No dissection or occlusion. Left common carotid artery: Unremarkable. No significant stenosis. No dissection or occlusion. Left extracranial internal carotid artery: Mild atherosclerotic calcifications of the carotid bulb. No significant stenosis. No dissection or occlusion. Left external carotid artery: Unremarkable. No occlusion. Left extracranial vertebral artery: Unremarkable. No significant stenosis. No dissection or occlusion. Lung apices: Unremarkable as visualized. HEAD and NECK: Bones/joints: C5-6 ACDF as on the CT C-spine. No discrete lytic or blastic abnormalities. Soft tissues: Unremarkable. CAROTID STENOSIS REFERENCE USING NASCET CRITERIA: % ICA stenosis = (1 - narrowest ICA diameter/diameter of distal cervical ICA) x 100. Mild - <50% stenosis. Moderate - 50-69% stenosis. Severe - 70-94% stenosis. Near occlusion - 95-99% stenosis. Occluded - 100% stenosis. IMPRESSION: Negative CTA carotid and CTA brain.
[2024-09-27] MEDS: SODIUM CHLORIDE 0.9% 1,000 ML IV STA (01:42)
--- NOTE | 2024-09-27 01:48 | XR ---
EXAM: XR Chest, 1 View CLINICAL HISTORY: ITS.REASON XR Reason: altered mental status TECHNIQUE: Frontal view of the chest. COMPARISON: No relevant prior studies available. FINDINGS: Lungs: Unremarkable. No consolidation. Pleural space: Unremarkable. No pneumothorax. Heart: Unremarkable. No cardiomegaly. Mediastinum: Unremarkable. Normal mediastinal contour. Bones/joints: Unremarkable. No acute fracture. IMPRESSION: No evidence of acute cardiopulmonary disease.
[2024-09-27] MEDS: LORazepam 2 MG/ML INJ IV STA (01:55)
[2024-09-27 02:05] LABS: Acetaminophen <10.0 ug/mL; Creatine Kinase 92 U/L (30-135); Salicylate <1.0 mg/dL
[2024-09-27 02:08] LABS: Glucose,Whole Blood 120 mg/dL (70-110)
[2024-09-27] MEDS: levETIRAcetam IV 3,000 MG in SODIUM CHLORIDE 0.9% 250 ML IVPB ONE (02:11)
[2024-09-27 02:46] LABS: Appearance,Urine Clear (Clear); Bilirubin,Urine Negative (Negative); Blood,Urine Negative (Negative); Color,Urine Colorless; Glucose,Urine (UA) Negative (Negative); Ketones,Urine 1+ (Negative); Leukocyte Esterase,Urine Negative (Negative); Nitrite,Urine Negative (Negative); Protein,Urine Negative (Negative); Specific Gravity,Urine 1.025 (1.001-1.035); Urobilinogen,Urine <2.0 mg/dL (<2.0)
[2024-09-27 03:04] VITALS: BP 137/85; RESP 16
[2024-09-27 03:08] LABS: Amphetamine Screen,Urine Not Detected (NotDetected); Barbiturate Screen,Urine Not Detected (NotDetected); Benzodiazepines Screen,Urine Detected (NotDetected); Cocaine Screen,Urine Not Detected (NotDetected); Methadone Screen, Urine Not Detected (NotDetected); Opiate Screen,Urine Not Detected (NotDetected); Oxycodone Screen, Urine Not Detected (NotDetected); Phencyclidine Screen,Urine Not Detected (NotDetected); Tricyclic Antidepressant,Urine Not Detected (NotDetected); Urn Cannabinoid Scrn Not Detected (NotDetected)
[2024-09-27 03:22] VITALS: PULSE 82
== END 2024-09-27 03:22 | disposition other institution (70) ==
LOC: EC 00:35
DX: G40.909 Epilepsy, unspecified, not intractable, without status epilepticus (principal); I10 Essential (primary) hypertension; Z87.891 Personal history of nicotine dependence; Z88.8 Allergy status to other drugs, medicaments and biological substances; Z86.73 Personal history of transient ischemic attack (TIA), and cerebral infarction without residual deficits; Z79.899 Other long term (current) drug therapy
CPT/HCPCS: 36415; 93005; 80053; 84443; 82550; 83735; 84484; 85025; 85610; 85730; 81003; 80306; 80143; 80179; 71045; 72125; 70496; 70450; 70498; 99291; 96360; G0480; J1953; Q9967; 80320